=== PATIENT | male | born 1950 | race Caucasian/White ===

== ENCOUNTER 2017-05-23 13:42 | Outpatient (CLI) | payer OTHER ==
[~2017-05-23 13:42] MED LIST: GADOBUTROL 10 MMOL/10 ML VIAL ONE
[2017-05-23] MEDS ORDERED: GADOBUTROL 10 MMOL/10 ML VIAL IVP ONE (14:27)
--- NOTE | 2017-05-23 17:02 | MRI Report ---
EXAM: MRI LUMBAR SPINE WITHOUT AND WITH CONTRAST EXAM DATE: 05/23/2017 02:40 PM. CLINICAL HISTORY: Chronic low back pain. Prostate cancer. COMPARISONS: None. TECHNIQUE: Multiplanar, multisequence T1-weighted and fluid-sensitive sequences of the lumbar spine f rom T12 to S1 before and after administration of intravenous contrast. Other: None. IV contrast: 10 m L Gadavist. FINDINGS: Spinal Cord: The conus terminates at L1-L2. The conus medullaris and cauda equina are unremarkable. Alignment: No scoliosis or spondylolisthesis. Bone Marrow: Five [id number]-[id number] lumbar vertebral bodies are assumed. No gross fractures. There is a n approximately 1.5 x 0.7 x 0.8 cm hypointense, nonenhancing focus at the left lateral aspect of the L4 vertebral body. Schmorl's node at the L3 superior endplate. Disk Levels/Facets: L5-S1: Degenerative endplate changes. Moderate to severe disk space narrowing. Small disk bulge/osteo phyte complex. Mild facet arthropathy. Mild to moderate foraminal stenoses. L4-L5: Left-sided degenerative endplate changes. Severe left-sided and moderate to severe right-sided disk space narrowing. Small posterior central to left paracentral and left foraminal disk protrusion /osteophyte complex. Moderate facet arthropathy. Mild canal stenosis. Mild subarticular zone stenoses . Mild right and mild to moderate left foraminal stenoses. L3-L4: Moderate disk space narrowing. Minimal disk bulge. Mild facet arthropathy. Mild canal and mini mal foraminal stenoses. L2-L3: Small disk bulge/osteophyte complex. Mild facet arthropathy. Mild canal and foraminal stenoses . L1-L2: Mild disk space narrowing. Small disk bulge. Mild canal stenosis. Mild to moderate facet arthr opathy. Vyau-ox-utvhnses left and mild right foraminal stenoses. T12-L1: Small Schmorl's nodes at the endplates. Small disk bulge. Minimal canal and foraminal narrowi ng. Spinal Canal: No enhancing masses within the spinal canal. No epidural abscess. Musculature: Normal. No edema, abnormal enhancement, or fatty atrophy. Other: Bilateral renal cysts are present. IMPRESSION: 1. An approximately 1.5 x 0.7 x 0.8 cm hypointense nonenhancing focus at the left lateral aspect of t he L4 vertebral body. Differential may include a blastic metastatic lesion or a bone island. Recommen d further evaluation with a follow up whole body bone scan. 2. Multilevel degenerative disk changes and facet arthropathy. 3. Small posterior central, left paracentral, and left foraminal disk protrusion/osteophyte complex a t L4-L5. Nchj-hk-nhrqxzay left and mild right foraminal stenoses. Mild canal stenosis. 4. Small disk bulge/osteophyte complex at L5-S1. Xnac-vy-tugjjwnq foraminal stenoses. 5. Minimal disk bulge at L3-L4. Mild canal and minimal foraminal stenoses. Comment: The following findings are so common in adults without low back pain that while we report th eir presence, they must be interpreted with caution and in the context of the clinical situation. (Re yanira He et al, Spine 2001) Prevalence of findings in patients without low back pain: Disk degeneration (any evidence): 92% Disk desiccation/T2 signal loss: 83% Disk height loss: 56% Disk bulge: 64% Disk protrusion: 32% Annular tear/high intensity zone: 38% [facility] Referring Provider Line: [phone] SITE ID: [id number]
== END 2017-05-23 13:43 | disposition home or self-care (01) ==
LOC: DI 13:42
PROVIDERS: ATTEND Registered Nurse
DX: M47.896 Other spondylosis, lumbar region (principal); M51.36 Other intervertebral disc degeneration, lumbar region; M51.26 Other intervertebral disc displacement, lumbar region
CPT/HCPCS: 72158; A9585

== ENCOUNTER 2018-09-10 13:04 | Outpatient (CLI) | payer MEDICARE, OTHER ==
--- NOTE | 2018-09-10 15:03 | XRAY Report ---
Reason: CHRONIC LEFT KNEE PAIN, - TRAUMA Procedure Date: 09/10/2018 Accession Number: [id number] / [id number] Procedure: XR - Knee 3 View LT CPT Code: FULL RESULT: EXAM: LEFT KNEE RADIOGRAPHY. EXAM DATE: 09/10/2018 01:24 PM. CLINICAL HISTORY: Chronic left knee pain - trauma. COMPARISON: None. TECHNIQUE: 3 views. FINDINGS: Bones: No acute fracture is detected. Joints: There is a small joint effusion and mild joint space narrowing predominantly of the medial weightbearing compartment. Posttraumatic changes are seen in the region of the tibial spines. No subluxation. Soft Tissues: Normal. No soft tissue swelling. IMPRESSION: Posttraumatic appearance of the tibial spines and small joint effusion. [facility]
== END 2018-09-10 13:05 | disposition home or self-care (01) ==
LOC: DI 13:04
PROVIDERS: ATTEND Family Medicine
DX: M17.12 Unilateral primary osteoarthritis, left knee (principal); M25.462 Effusion, left knee

== ENCOUNTER 2018-09-12 12:04 | Outpatient (CLI) | payer MEDICARE, OTHER ==
--- NOTE | 2018-09-12 19:25 | MRI Report ---
Reason: UNILATERAL PRIMARY OSTEOARTHRITIS, LEFT KNEE Procedure Date: 09/12/2018 Accession Number: [id number] / [id number] Procedure: MRI - Knee LT W/O CPT Code: FULL RESULT: EXAM: LEFT KNEE MRI WITHOUT CONTRAST EXAM DATE: 09/12/2018 12:48 PM. CLINICAL HISTORY: Unilateral primary osteoarthritis, left knee. Left knee pain for several years. COMPARISON: KNEE 3 VIEW LT 09/10/2018 1:14 PM. TECHNIQUE: Multiplanar, multisequence T1-weighted and fluid-sensitive sequences of the knee without contrast. Other: None. FINDINGS: Bones: Focal subcortical marrow edema lateral patellar facet. Probable benign cartilaginous lesion 1.2 cm posterior proximal tibia metaphysis. Posterior tibial spine intraosseous ganglion cyst 1.3 cm in transverse dimension and 1.8 cm in AP dimension. Articular Cartilage: Moderate grade III chondromalacia posterior aspect lateral femoral condyle. Focal severe chondromalacia lateral patellar facet. Medial Meniscus: Complex tear posterior horn medial meniscus at the meniscal root. Lateral Meniscus: Complex radial tear posterior horn lateral meniscus. Complex lateral meniscus body with free edge truncation. Posterior horn of the lateral meniscus free complex tear. Probable small meniscal flap posterior horn lateral meniscus. Cruciate Ligaments: Enlargement with diffuse intermediate signal anterior cruciate ligament. Probable partial interstitial tear. Normal thickness and low signal posterior cruciate ligament. Collateral Ligaments: The medial collateral and lateral collateral ligamentous structures are intact. Tendons: The quadriceps, patellar, semimembranosus, and popliteus tendons are unremarkable. Musculature: No edema or fatty atrophy. Other: Moderate quantity of fluid patellar recesses. No popliteal cyst. No loose bodies. The medial and lateral retinacula are intact. Edema infrapatellar fat pad. IMPRESSION: 1. Complex full-thickness radial, free edge and meniscal flap tear posterior horn lateral meniscus. 2. Complex tear lateral meniscus body with free edge truncation. 3. Complex tear posterior horn medial meniscus at the meniscal root. 4. Enlargement and diffuse intermediate signal anterior cruciate ligament. Probable partial longitudinal interstitial tear. 5. Moderate quantity of joint fluid and there is a severe focal chondromalacia lateral patellar facet. 6. Moderate chondromalacia posterior aspect lateral femoral condyle. [facility]
== END 2018-09-12 12:05 | disposition home or self-care (01) ==
LOC: DI 12:04
PROVIDERS: ATTEND Family Medicine
DX: S83.272A Complex tear of lateral meniscus, current injury, left knee, initial encounter (principal); S83.232A Complex tear of medial meniscus, current injury, left knee, initial encounter; M94.262 Chondromalacia, left knee; M25.462 Effusion, left knee

== ENCOUNTER 2018-12-30 12:14 | Emergency (ER) | payer MEDICARE, OTHER ==
[2018-12-30 12:22] VITALS: BP 145/83
--- NOTE | 2018-12-30 13:21 | XRAY Report ---
Reason: cough Procedure Date: 12/30/2018 Accession Number: [id number] / [id number] Procedure: XR - Chest 2 View X-Ray CPT Code: 87461 FULL RESULT: EXAM: CHEST RADIOGRAPHY EXAM DATE: 12/30/2018 01:00 PM. CLINICAL HISTORY: Cough. COMPARISON: None. TECHNIQUE: 2 views. FINDINGS: Lungs/Pleura: No focal opacities evident. No pleural effusion. No pneumothorax. Normal volumes. Mediastinum: Heart and mediastinal contours are unremarkable. Other: Cervical spinal hardware is partially imaged. IMPRESSION: No acute cardiopulmonary abnormality. [facility]
--- NOTE | 2018-12-30 13:39 | ED Physician Documentation ---
PD HPI URI - Stated complaint Stated Complaint: CONGESTION/COUGH - Chief complaint Chief Complaint: Resp - History obtained from History obtained from: Patient - History of Present Illness Timing - onset: How many weeks ago (2 1/2) Timing duration: Weeks (2 1/2) Timing details: Gradual onset, Still present (had URI then changed to cough and has had persistent cough and now productive with wheezing and feverish.) Associated symptoms: Fever (subjective the past couple of days.), Nasal congestion, Productive cough, Dyspnea. No: Hemoptysis, NVD, Bilateral edema Contributing factors: No: Sick contact, Travel, Immunocompromised, COPD / asthma Similar symptoms before: Has not had sx before Recently seen: Not recently seen Review of Systems Constitutional: reports: Fever (subjective for couple of days), Chills, Myalgias Nose: reports: Rhinorrhea / runny nose, Congestion Throat: reports: Oral lesions / sores (has couple days of sores lower mouth gums and sides of tongue. No sores back of throat. No general rash.). denies: Sore throat Cardiac: reports: Chest pain / pressure (with coughing in sternal area). denies: Palpitations, Pedal edema, Calf pain Respiratory: reports: Dyspnea, Cough, Wheezing GI: reports: Nausea. 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 ) Other Past Medical History: arthritis. prostate ca - Past Surgical History Ortho: Spine surgery - Present Medications Home Medications: Ambulatory Orders Medication Instructions Recorded Confirmed Albuterol Sulf [Ventolin Hfa 2 puffs INH Q4HR PRN #1 inhaler 12/30/18 Inhaler] Benzonatate [Tessalon Perle] 100 mg PO TID PRN #25 capsule 12/30/18 Doxycycline Hyclate 100 mg PO BID #15 capsule 12/30/18 Lidocaine Viscous 2% [Xylocaine 5 ml PO Q4H PRN #100 ml 12/30/18 Viscous 2%] dexAMETHasone [Decadron] 4 mg PO DAILY #5 tablet 12/30/18 - Allergies Allergies/Adverse Reactions: Allergies Allergy/AdvReac Type Severity Reaction Status Date / Time No Known Drug Allergies Allergy Verified 12/30/18 12:22 - Social History Does the pt smoke?: No Smoking Status: Former smoker Does the pt drink ETOH?: No Does the pt have substance abuse?: No - Immunizations Immunizations are current?: Yes PD ED PE NORMAL - Vitals Vital signs reviewed: Yes - General General: Alert and oriented X 3, No acute distress, Well developed/nourished - HEENT HEENT: Dentition benign, Other (inside lower lip, lower gingiva and sides of tongue with many small ulcerative point sores. ) - Neck Neck: Supple, no meningeal sign, No adenopathy - Cardiac Cardiac: RRR, No murmur - Respiratory Respiratory: No respiratory distress, Clear bilaterally (lungs are clear. but has wheezing sound and congestion centrally with cough. ) - Abdomen Abdomen: Soft, Non tender - Derm Derm: Normal color, Warm and dry - Extremities Extremities: Normal ROM s pain, No edema, No calf tenderness / cord - Neuro Neuro: Alert and oriented X 3, No motor deficit, Normal speech Results - Vitals Vitals: Vital Signs - 24 hr 12/30/18 12/30/18 12/30/18 12:19 14:48 15:12 Temperature 36.7 C Heart Rate 75 69 87 Respiratory 19 16 19 Rate Blood Pressure 145/83 H O2 Saturation 96 99 Oxygen O2 Source Room air - Rads (name of study) chest xray Radiology: Prelim report reviewed (no acute infiltrates), EMP read contemporaneously, See rad report PD MEDICAL DECISION MAKING - ED course Complexity details: reviewed results, re-evaluated patient (improved breathing with neb treatment but still congested cough. ), considered differential, d/w patient Departure - Departure Disposition: 01 Home, Self Care Clinical Impression: Viral stomatitis Acute bronchitis Qualifiers: Bronchitis organism: unspecified organism Qualified Code(s): J20.9 - Acute bronchitis, unspecified Condition: Stable Record reviewed to determine appropriate education?: Yes Instructions: ED Upper Resp Infec Abx Tx Follow-Up: Elkin Smiley MD [Primary Care Provider] - Prescriptions: Albuterol Sulf [Ventolin Hfa Inhaler] 2 puffs INH Q4HR PRN #1 inhaler PRN Reason: Shortness Of Air/Wheezing Benzonatate [Tessalon Perle] 100 mg PO TID PRN #25 capsule PRN Reason: Cough dexAMETHasone [Decadron] 4 mg PO DAILY #5 tablet Doxycycline Hyclate 100 mg PO BID #15 capsule Lidocaine Viscous 2% [Xylocaine Viscous 2%] 5 ml PO Q4H PRN #100 ml PRN Reason: Pain Comments: I think the sores are on the tongue and gums are viral and probably just because your immunity is down. You can continue your acyclovir that you would for a cold sore. Add some lidocaine to the area to have it less painful. You can mix that with some liquid Benadryl to have an added benefit for numbing and inflammation of it. For your bronchitis, use the albuterol inhaler 2 puffs 4 times a day and extra times as needed for wheezing and cough. Tessalon as needed for cough. Decadron steroid daily for 5 more days for bronchial inflammation. Doxycycline twice daily for a week for presumed bacterial component at this point. Recheck if not improving over the next several days to a week. Discharge Date/Time: 12/30/18 15:12
[2018-12-30] MEDS ORDERED: ALBUTEROL NEB 2.5 MG/3 ML INH STA (14:15)
[2018-12-30] MEDS ORDERED: CHERRY SYRUP 10 ML UDC PO ONE (14:16)
[2018-12-30] MEDS ORDERED: DOXYCYCLINE 100 MG TABLET PO STA (14:16)
[2018-12-30] MEDS ORDERED: DEXAMETHASONE 10 MG/ML VIAL PO STA (14:16)
[2018-12-30] MEDS ORDERED: LIDOCAINE VISCOUS 2% 15 ML UDC MM STA (14:16)
== END 2018-12-30 15:12 | disposition home or self-care (01) ==
LOC: ED 12:14
DX: J20.9 Acute bronchitis, unspecified (principal); K12.1 Other forms of stomatitis; Z87.891 Personal history of nicotine dependence
CPT/HCPCS: 71046; 94640; 94664; 99282; 99283; A9270

== ENCOUNTER 2019-01-08 14:50 | Outpatient (CLI) | payer MEDICARE, OTHER ==
--- NOTE | 2019-01-09 11:01 | XRAY Report ---
Reason: cough Procedure Date: 01/08/2019 Accession Number: [id number] / [id number] Procedure: XRN - Chest 2 View X-Ray CPT Code: 83252 FULL RESULT: EXAM: CHEST RADIOGRAPHY EXAM DATE: 01/08/2019 03:06 PM. CLINICAL HISTORY: Cough. COMPARISON: CHEST 2 VIEW 12/30/2018 12:48 PM. TECHNIQUE: 2 views. FINDINGS: Lungs/Pleura: 5 mm nodule suggested in the right upper lung, with irregular margins. Lungs elsewhere appear clear. No pleural fluid collections. Mediastinum: Heart and mediastinal contours are unremarkable. Other: Healed previous right posterolateral rib fractures. IMPRESSION: 5 mm irregular nodule in the right upper lobe. Consideration of follow-up CT of the chest suggested. [facility]
== END 2019-01-08 14:51 | disposition home or self-care (01) ==
LOC: DI.N 14:50
PROVIDERS: ATTEND Physician Assistant
DX: R91.1 Solitary pulmonary nodule (principal)
CPT/HCPCS: 71046

== ENCOUNTER 2020-07-27 07:51 | Day surgery (SDC) | payer MEDICARE, OTHER ==
[2020-07-27] MEDS ORDERED: LACTATED RINGERS 1,000 ML IV ONE (08:17)
[2020-07-27] MEDS ORDERED: fentaNYL 250 MCG/5 ML VIAL ONE (09:16)
[2020-07-27] MEDS ORDERED: MIDAZOLAM 2 MG/2 ML VIAL ONE (09:16)
[2020-07-27 10:01] VITALS: BP 114/86
== END 2020-07-27 07:52 | disposition home or self-care (01) ==
LOC: SDS 07:51
PROVIDERS: ATTEND Surgery
DX: Z12.11 Encounter for screening for malignant neoplasm of colon (principal); K64.8 Other hemorrhoids; Z87.891 Personal history of nicotine dependence; Z79.82 Long term (current) use of aspirin
CPT/HCPCS: G0121; J3010; J7120